=== PATIENT | male | born 1985 | race Caucasian/White ===

== ENCOUNTER 2017-02-24 08:33 | Emergency (ER) | payer OTHER ==
[~2017-02-24] VITALS: Ht 177.8 cm; Wt 102.3 kg
[2017-02-24 08:38] VITALS: BP 147/67
[2017-02-24] MEDS ORDERED: FLEXERIL 1010 MG/TAB PO (09:06)
[2017-02-24 09:50] VITALS: PULSE 77
== END 2017-02-24 10:08 | disposition home or self-care (01) ==
LOC: COL.ER 08:33
DX: S16.1XXA Strain of muscle, fascia and tendon at neck level, initial encounter (principal); S39.012A Strain of muscle, fascia and tendon of lower back, initial encounter; V43.52XA Car driver injured in collision with other type car in traffic accident, initial encounter; Y92.410 Unspecified street and highway as the place of occurrence of the external cause; R40.2412 Glasgow coma scale score 13-15, at arrival to emergency department

== ENCOUNTER 2018-08-25 02:29 | Emergency (ER) | payer BC ==
[~2018-08-25] VITALS: Ht 177.8 cm; Wt 102.3 kg
[~2018-08-25 02:29] MED LIST: FLEXERIL 1010 MG/TAB PO
[2018-08-25 02:33] VITALS: TEMP 97.1
[2018-08-25 03:01] LABS: BASO # 0.1 (0.0-0.2); BASO % 0.4 % (0.0-2.0); EOS # 0.3 (0.0-0.7); EOS % 1.9 % (0-4.0); GRAN # 9.8 (1.4-6.5); GRAN % 66.2 % (42.2-75.2); HEMATOCRIT 46.9 % (42.0-52.0); HEMOGLOBIN 15.4 g/dl (13.5-18.0); LYMPH # 3.1 (1.2-3.4); LYMPH % 21.2 % (20.0-51.0); MEAN CELL VOLUME 86 fl (80.0-100.0); MEAN CORPUSCULAR HEMOGLOBIN 28 pg (27.0-31.0); MEAN CORPUSCULAR HGB CONC 33 g/dl (33.0-37.0); MEAN PLATELET VOLUME 9.3 fl (7.4-10.4); MONO # 1.4 (0.1-0.6); MONO % 9.4 % (1.7-9.3); PLATELET COUNT 349 K/mm3 (130-400); RED BLOOD COUNT 5.46 M/mm3 (4.20-5.60); REDCELL DISTRIBUTION WIDTH-CV 13.2 % (11.5-14.5)
[2018-08-25 03:14] LABS: ALBUMIN 4.4 gm/dL (3.5-5.0); BILIRUBIN,TOTAL 1.1 mg/dL (0.0-1.0); C-REACTIVE PROTEIN 2.7 mg/dL (0.0-0.9); CALCIUM 9.2 mg/dL (8.4-10.2); CREATININE, serum 1.01 mg/dL (0.66-1.25); POTASSIUM 4.1 mmol/L (3.4-5.0); TOTAL PROTEIN 7.9 gm/dL (6.4-8.2)
[2018-08-25 03:24] LABS: ERYTHROCYTE SEDIMENTATION RATE 8 mm/hr (0-15)
[2018-08-25] MEDS ORDERED: MULTIPLE VITAMI1 CAP PO (03:39)
[2018-08-25] MEDS ORDERED: NORCO 325 MG-51 TAB PO (05:32)
[2018-08-25] MEDS ORDERED: MEDROL 4MG DOSPA4 MG PO (05:32)
[2018-08-25 05:43] VITALS: BP 105/59; PULSE 82
== END 2018-08-25 05:43 | disposition home or self-care (01) ==
LOC: COL.ER 02:29
PROVIDERS: Emergency Medicine
DX: R07.81 Pleurodynia (principal)
CPT/HCPCS: J1885; J2405; J3010; J7030; J7512; Q9967

== ENCOUNTER → 2021-06-26 | Outpatient (CLI) | payer BC ==
[~2021-06-26] MED LIST changes: +MEDROL 4MG DOSPA4 MG PO; +MULTIPLE VITAMI1 CAP PO; +NORCO 325 MG-51 TAB PO
== END ==
LOC: COL.RAD 15:40
DX: R07.89 Other chest pain (principal)